=== PATIENT | female | born 1990 | race Caucasian/White ===

== ENCOUNTER 2020-11-02 15:30 | Outpatient (CLI) | payer OTHER | END 2020-11-02 23:59 | disposition home or self-care (01) | LOC: LAB.R 15:30 | PROVIDERS: ATTEND Pediatrics | DX: R43.8 Other disturbances of smell and taste (principal); Z20.822 Contact with and (suspected) exposure to COVID-19 ==

== ENCOUNTER 2020-11-05 17:27 | Outpatient (CLI) | payer OTHER ==
--- OUTSIDE RECORDS SUMMARY | 2020-11-14 00:10 | EXTERNAL MEDICAL SUMMARY RPT | Continuity of Care Document ---
:1990 Demographics Phone Unavailable Preferred Language Unknown Marital Status Unknown Scientology Affiliation Unknown Race Unknown Ethnic Group Unknown Author Organization [place] Address [address] [id number] Phone Care Team Providers Name Role Phone Harpe Unavailable Unavailable Problems date description facility 2014-11-25 20:18 HEAD INJURY, NOS [facility] 2014-11-25 20:18 ACCIDENT IN HOME [facility] 2014-11-25 20:18 FALL ON STAIR/STEP NEC Formerly [facility] 2020-11-02 00:00 ENCOUNTER FOR SCREENING FOR OTHER [facility] VIRAL DISEASES 2020-11-05 17:27 UNSPECIFIED DISTURBANCES OF SMELL [facility] AND TASTE 2020-11-05 17:27 CONTACT W AND EXPOSURE TO OTH [facility] VIRAL COMMUNICABLE DISEASES Allergies date description facility NO KNOWN ALLERGIES [facility] No Known Drug Allergies [facility] Results test status date ordered by attending specimen vamsi e null F 2020-11-02 15:30:00 [email or web address] Daya Valenzuelat 2 16:14:00 facility observation status value reference units lab abnor mal line notes range code [facility] F NEGATIVE unknown [facility] [place] [facility] report - Report scanned to Patient' s EMR. [facility] test status date ordered by attending specimen vamsi e null F 2020-11-05 17:27:00 [email or web address] Daya Taz 2 17:30:00 facility observation status value reference units lab abnor mal line notes range code [facility] F NEGATIVE unknown [facility] [place] [facility] report - Report scanned to Patient' s EMR. [facility] Social History date description facility [id number]
== END 2020-11-05 17:28 | disposition home or self-care (01) ==
LOC: LAB 17:27
PROVIDERS: ATTEND Pediatrics
DX: R43.9 Unspecified disturbances of smell and taste (principal); Z20.822 Contact with and (suspected) exposure to COVID-19

== ENCOUNTER 2025-09-15 15:23 | Inpatient (IN) ==
--- OUTSIDE RECORDS SUMMARY | 2025-09-15 15:29 | EXTERNAL MEDICAL SUMMARY RPT | Continuity of Care Document ---
Author Organization [place] Address [address] [place] [address] Phone Problems date description facility 2025-06-17 00:01 Other malformation of placenta, second trimester [facility] 2025-06-17 00:01 Encounter for superv ision of normal , unspecified, unspecified trimester [facility] 2025-06-19 10:14 Other malformation of placenta, second trimester [facility] 2025-06-20 11:40 Encounter for superv ision of normal , unspecified, unspecified trimester [facility] 2025-06-21 00:04 Encounter for superv ision of normal , unspecified, unspecified trimester [facility] 2025-07-06 15:14 Decreased move ments, third trimester, not applicable or unspecified [facility] 2025-07-26 10:53 Other specified dise ases and conditions complicating [facility] 2025-08-14 09:44 Encounter for screeni ng for Streptococcus B [facility] 2025-08-14 09:45 Encounter for immunization [facility] 2025-08-14 09:45 Encounter for screeni ng for Streptococcus B [facility] 2025-08-14 10:14 Encounter for immunization [facility] 2025-08-14 10:14 Encounter for screeni ng for Streptococcus [facility] 2025-08-15 00:03 Encounter for immunization [facility] 2025-08-15 00:03 Encounter for screeni ng for Streptococcus B [facility] 2025-08-17 07:49 Supervision of elderly multigra nury, third trimester [facility] 2025-08-17 07:49 Encounter for immunization [facility] 2025-08-17 07:49 Encounter for screeni ng for Streptococcus B [facility] 2025-08-17 07:49 36 weeks gestation of [facility] 2025-08-24 09:36 Abnormal glucose complicating p regnancy [facility] 2025-08-30 15:45 Supervision of elderly adalberto arrington, third trimester [facility] 2025-08-30 15:45 38 weeks gestation of [facility] 2025-09-07 14:38 Encounter for superv ision of normal , unspecified, third trimester [facility] 2025-09-14 08:04 Encounter for superv ision of other normal , third trimester [facility] 2025-09-14 08:04 40 weeks gestation of [facility] Results/Labs test date facility value unit notes Result panel 1 WEIGHT 2025-06-20 12:53 [facility] 148 lbs (missing) GLUCOSE,1H PP 50GM DOSE 2025-06-20 12:53 [facility] 151 mg/dl 50g Challenge 1 hr post Glucose < 140 mg/dL Reference: [employer] As of May 2023 testing method has changed, this may include reference ranges. AFP VALUE 2025-06-20 12:53 [facility] 251.4 ng/ml (missing) GEST. AGE ON COLLECTION DATE 2025-06-20 12:53 [facility] 28.3 weeks (missing) MATERNAL AGE AT AYAH 2025-06-20 12:53 [facility] [age] yr (missing) RACE 2025-06-20 12:53 [facility] (missing) (missing) INTERPRETATION 2025-06-20 12:53 [facility] Comment (missing) Interpretation: An interpretation CANNOT be provided for this patient due to one of the following reasons: 1. Gestational age is <15 weeks. Please submit a second sample at the optimum gestational age for screening (16-18 weeks). OR 2. Gestational age is greater than 23 weeks. COMMENTS 2025-06-20 12:53 [facility] Comment (missing) Brenda Clemons, Ph.D., [facility] Director References: Available Upon Request. Multiples Of Median Cutoffs For AFP Elevations Anguiano 2.5 Black 2.8 IDD 2.0 Twins 4.5 Abbreviation Definitions IDD - Insulin Dep Diabetes OSBR - Open Spina Bifida Risk For further inquiries contact [facility] at [phone]. This test was developed and its performance characteristics determined by [employer]. It has not been cleared or approved by the Food and Drug Administration. Performed at: [facility] [id number] [place], [place] [id number] Manager Management: Aury Gordon [facility], Phone: [phone] GESTAT. AGE METHOD 2025-06-20 12:53 [facility] AYAH (missing) 09/10/2025 Recalculations are not recommended when gestational dating by LMP and ultrasound are within 10 days. INSULIN DEP DIABETES 2025-06-20 12:53 [facility] No (missing) (missing) MULTIPLE GESTATION 2025-06-20 12:53 [facility] No (missing) (missing) RPR 2025-06-20 12:53 [facility] Non Reactive (missing) Performed at: [facility] [address] [address], [place], [place] [id number] Manager Management: Kolton Adair MD, Phone: [phone] RESULTS 2025-06-20 12:53 [facility] Report (missing) N [id number] N LMP 19.1 [id number] 1 19 N [id number] 1 N 148 N N N N N AFP MOM 2025-06-20 12:53 [facility] See interpretatio n. (missing) (missing) OPEN SPINA BIFIDA RISK 1 IN 2025-06-20 12:53 [facility] See interpretatio n. (missing) (missing) TEST RESULTS 2025-06-20 12:53 [facility] See interpretatio n. (missing) (missing) Result panel 2 HGB - HEMOGLOBIN 2025-06-20 12:56 [facility] 12.1 g /dl (missing) RED CELL DISTRIBUTION WIDTH 2025-06-20 12:56 [facility] 13.4 % (missing) PLT - PLATELET COUNT 2025-06-20 12:56 [facility] 247 10 3/ul (missing) RED BLOOD COUNT 2025-06-20 12:56 [facility] TORCH.sh 3.73 10 6/ul (missing) MEAN CORPUSCULAR HEMOGLOBIN 2025-06-20 12:56 [facility] 32.4 pg (missing) MEAN CORPUSCULAR HGB CONC 2025-06-20 12:56 [facility] 33 .6 g/dl (missing) HCT - HEMATOCRIT 2025-06-20 12:56 [facility] 36.0 % (missing) WHITE BLOOD COUNT 2025-06-20 12:56 [facility] 8.6 x10 3/ul (missing) MEAN PLATELET VOLUME 2025-06-20 12:56 [facility] 9.1 fl (missing) MEAN CORPUSCULAR VOLUME 2025-06-20 12:56 [facility] 96.5 fl (missing) Result panel 3 GROUP B STREP PCR 2025-08-14 09:44 [facility] NEGATIVE (missing) (missing) Social History date description facility
[2025-09-15] MEDS ORDERED: LABETALOL 20 MG/4 ML SYRINGE IVP PRN ×5 (15:36→23:43)
[2025-09-15] MEDS ORDERED: TERBUTALINE 1 MG/ML VIAL SUBQ PRN (15:36)
[2025-09-15] MEDS ORDERED: ACETAMINOPHEN 500 MG TABLET PO PRN (15:36)
[2025-09-15] MEDS ORDERED: TRANEXAMIC ACID IN NACL 1,000 MG/100 ML BAG IV PRN (15:36)
[2025-09-15] MEDS ORDERED: CARBOPROST TROMETHAMINE 250 MCG/ML VIAL IM PRN (15:36)
[2025-09-15] MEDS ORDERED: OXYTOCIN 10 UNIT/ML VIAL IM PRN (15:36)
[2025-09-15] MEDS ORDERED: OXYTOCIN/SODIUM CHLORIDE 500 ML IV PRN (15:36)
[2025-09-15] MEDS ORDERED: SODIUM CHLORIDE FLUSH 0.9% 10 ML SYRINGE IVP PRN (15:36)
[2025-09-15] MEDS ORDERED: hydrALAZINE INJ 20 MG/ML VIAL IVP PRN ×3 (15:36→23:43)
[2025-09-15] MEDS ORDERED: METHYLERGONOVINE 0.2 MG/ML VIAL IM PRN (15:36)
[2025-09-15] MEDS ORDERED: fentaNYL 100 MCG/2 ML VIAL IVP PRN (15:36)
[2025-09-15] MEDS ORDERED: SODIUM CHLORIDE FLUSH 0.9% 10 ML SYRINGE IVP SCH (16:00)
--- NOTE | 2025-09-15 16:04 | HISTORY & PHYSICAL EXAMINATION ---
Admit History Smoking Status: Never smoker Other Maternal History Other Maternal History: HPI: This 35 yo @ 40+5 weeks by LMP and confirmed by 12 week ultrasound presents to L&D following clinic visit where she was found to be 5/70/-2 and membranes swept. Experiencing decreased movement both today and yesterday. Reviewed that the recommendation for postdates , with decreased movement and especially advanced cervical dilation, is induction of labor. When reviewing her goals of induction she is opting to progress in whatever way can safely get her to delivery of her healthy baby girl in the shortest timeline is her preferred method. Open to AROM and oxytocin. Desires epidural for pain management. Reviewed that risks of labor include but are not limited to section, prolonged labor, vacuum extraction, episotomy, hemorrhage, and additional risks exist re: prolonged second stage related to extraction. Reviewed back up OBGYN is available for consultations, emergency interventions and transfer of care if indicted. She has been a patient of [facility] care for the duration of her which has remained uncomplicated. ROS: No Headache, visual changes or right upper quadrant abdominal pain. Denies significant N/V. Denies urinary urgency or dysuria. All other symptoms reviewed and were negative except per HPI. In the event of an emergency, accepts the administration of blood products. Recent BP: 112/70 Labs: H&H 12.1/ 36.0, PLT 247 Last u/s EFW: 53% @ 28 weeks Total maternal weight gain: + 34# In the event of an emergency, ACCEPTS the administration of blood products OB hx: uncomplicated G1: 2011; M; G2: 2013; M; Medical Hx: Depression; ADHD Surgical Hx: Toe surgery Social Hx: Monogamous with male partner. Stopped drinking alcohol due to . Denies current use of tobacco, marijuana or other recreational drugs. Reports that she is safe in current relationship. Family Hx: Denies family history of congenital anomalies, Cystic Fibrosis or chromosomal abnormalities. Diabetes - aunt; Alcoholism - father; Colon cancer - MGF Allergies:NKDA Medications: PNV LMP:12/04/24 AYAH by LMP: 09/10/2025 U/S: @ 12.5wks c/w LMP dating (AYAH by U/S 09/09/2025) Final AYAH: 09/10/2025 Pre- weight: 135 BMI: 24.7 Blood type: O+ Antibody screen: Negative CBC: PLT 253 HCT 38.6HGB 13.3 Rubella: Immune VZV: Immune HBsAg: Negative HepC: NR RPR/AB-EIA: NR HIV: NR Flu: 08/14/2025 COVID: Declines PAP: unsure GC/CT: negative HSV: denies in self and partner Genetic Testing:MaterniT - Neg; AFP- not done FAS: Placenta: anterior w/o previa Cord:3VC SONY:WNL EFW: 550.5g, 33.8%ile 50gm GCT: 151 3 hr GTT: profiled TDAP: 08/14/2025 Breast Pump: given 2nd antibody screen: 3rd trimester 12.1/ 36.6/ 247 3rd trimester RPR NR RSV 08/14/2025 GBS: 08/14/2025 Negative Delivery plan: Epidural, accepts active management of the third stage, intends to breastfeed contraception Physical exam: Normocephalic, atraumatic No increased work of breathing Abdomen gravid, soft, nontender. EFW 3700 FHR baseline 140, minimal to moderate variability, + accelerations, no decelerations Genaro irregularily, soft uterine resting tone. SVE 5/70/-2, intact, vertex, membranes intact prior to AROM Bilateral LE's trace edema Mood is good. Assessment: 35 yo @ 40+5 weeks gestation by 12+5 wk U/S postdates decreased movement but reactive tracing advanced cervical dilation FHR 140, primarily category I. GBS NEG Plan: Admit to [facility] for induction of labor AROM, clear fluid @ 1644 Pitocin for induction of labor. Continuous monitoring Jacuzzi PRN. Nitrous oxide PRN. Epidural PRN Maternal Request. Anticipate . HPI Current : Vital Signs Temperature 36.9 C 09/15/25 15:40 Pulse Rate 83 09/15/25 15:40 Respiratory Rate 14 09/15/25 15:40 Blood Pressure 112/70 09/15/25 15:40 Meds/Allgy Home Medications Ambulatory Orders Medication Instructions Recorded Confirmed vits no.126-ferrous fum tab PO 02/01/2509/15 28 mg iron-folic acid 800 mcg tablet (Classic ) blood sugar diagnostic (True #100 ea 06/25/25 09/15/25 Metrix Glucose Test Strip) blood-glucose meter (True Metrix #1 ea 06/25/25 Air Glucose Meter) lancets 30 gauge (Ultra Thin #100 ea 06/25/25 09/15/25 Lancets) Allergies Allergies Allergy/AdvReac Type Severity Reaction Status Date / Time No Known Drug Allergies Allergy Verified 09/15/25 16:35 PFSH Active Problems All Active Problems (Updated 09/15/25 @ 15:38 by WALKER Hong) Decreased movement (Acute) Post-term , 40-42 weeks of gestation (Acute) Elevated glucose tolerance test (Acute) Marginal insertion of umbilical cord affecting management of mother in second trimester (Acute) Supervision of normal (Acute) ADHD (Acute) Medical History Medical History (Updated 09/15/25 @ 15:38 by WALKER Hong) Depression Surgical History Surgical History (Updated 02/01/25 @ 13:49 by Mady Akers RN) H/O toe surgery Family History Family History (Updated 02/01/25 @ 14:20 by Mady Akers RN) Father Alcoholism Maternal grandfather Colon cancer Aunt Diabetes Uncle Mental disorder Social History Social History (Updated 07/18/25 @ 13:12 by Mirna May MA) Smoking Status: Never smoker Do you vape?: No ETOH Use: None Frequency: Occasional Substance Use: denies use POLST Patient has POLST: No Physical Abdominal Exam Vital Signs: Temp Pulse Resp BP 36.9 C 83 14 112/70 09/15/25 15:40 09/15/25 15:40 09/15/25 15:40 09/15/25 15:40 Plan for Labor Plan For Labor I expect patient to be DC'd or transferred within 96 hours.: Yes
[2025-09-15 17:12] LABS: HCT - HEMATOCRIT 39.9 % (37.0-47.0); HGB - HEMOGLOBIN 14.0 g/dL (12.0-16.0); MEAN PLATELET VOLUME 9.5 fL (7.9-10.8); NRBC ABSOLUTE COUNT (AUTO) 0.00 x10^3/uL; NUCLEATED RED BLOOD CELLS AUTO 0.0 /100WBC; PLT - PLATELET COUNT 281 10^3/uL (130-450); RED CELL DISTRIBUTION WIDTH 13.8 % (12.0-15.0)
[2025-09-15] MEDS: LACTATED RINGERS 1,000 ML IV PRN (17:14)
[2025-09-15] MEDS ORDERED: LIDOCAINE 2%-EPI 1:100000 20 ML MDV ONE (19:16)
[2025-09-15] MEDS ORDERED: ROPIVACAINE 0.2% 200 MG/100 ML BAG EP ONE (19:17)
[2025-09-15] MEDS ORDERED: ROPIVACAINE 0.2% 200 MG/100 ML BAG EP PRN (20:10)
[2025-09-15] MEDS ORDERED: ONDANSETRON 4 MG/2 ML VIAL IVP PRN (20:10)
[2025-09-15] MEDS ORDERED: ePHEDrine 50 MG/ML VIAL IVP PRN (20:10)
[2025-09-15] MEDS ORDERED: NALOXONE 0.4 MG/ML VIAL IVP PRN ×2 (20:10→23:43)
--- NOTE | 2025-09-15 20:12 | ANESTHESIA PROCEDURE NOTE ---
Pre-Anesthesia VS, & Labs Diagnosis Surgical Diagnosis:: Active labor Procedure Procedure: vaginal delivery Vitals Vital Signs: Temp Pulse Resp BP Pulse Ox 36.9 C 73 14 113/74 98 09/15/25 16:49 09/15/25 16:49 09/15/25 16:49 09/15/25 16:49 09/15/25 16:49 NPO NPO: Other (clear liquids ok) Is Patient ?: Yes Lab Results Current Lab Results: Laboratory Tests 09/15/25 16:00: WBC 9.8, RBC 4.18 L, Hgb 14.0, Hct 39.9, MCV 95.5, MCH 33.5 H, MCHC 35.1, RDW 13.8, Plt Count 281, MPV 9.5, Neut # (Auto) 7.6 H, Lymph # (Auto) 1.3 L, [place] # (Auto) 0.5, Eos # (Auto) 0.3, Baso # (Auto) 0.0, Absolute Nucleated RBC 0.00, Nucleated RBC % 0.0, Blood Type O POSITIVE, Antibody Screen NEGATIVE Lab results reviewed: Yes 09/15/25 16:00 Meds/Allgy Home Medications Ambulatory Orders Medication Instructions Recorded Confirmed vits no.126-ferrous fum tab PO 02/01/2509/15 28 mg iron-folic acid 800 mcg tablet (Classic ) blood sugar diagnostic (True #100 ea 06/25/25 09/15/25 Metrix Glucose Test Strip) blood-glucose meter (True Metrix #1 ea 06/25/25 Air Glucose Meter) lancets 30 gauge (Ultra Thin #100 ea 06/25/25 09/15/25 Lancets) Allergies Allergies Allergy/AdvReac Type Severity Reaction Status Date / Time No Known Drug Allergies Allergy Verified 09/15/25 16:35 PFSH Active Problems All Active Problems Decreased movement (Acute) Post-term , 40-42 weeks of gestation (Acute) Elevated glucose tolerance test (Acute) Marginal insertion of umbilical cord affecting management of mother in second trimester (Acute) Supervision of normal (Acute) ADHD (Acute) Medical History Medical History Depression Surgical History Surgical History H/O toe surgery Family History Family History (Updated 02/01/25 @ 14:20 by Mady Akers RN) Father Alcoholism Maternal grandfather Colon cancer Aunt Diabetes Uncle Mental disorder Social History Social History (Updated 07/18/25 @ 13:12 by Mirna May MA) Smoking Status: Never smoker Do you vape?: No ETOH Use: None Frequency: Occasional Substance Use: denies use POLST Patient has POLST: No POLST CPR Status: Attempt Resuscitation (CPR) Level of Medical Intervention: Full Treatment Anesthesia Exam (Expanded) Exam General: Alert, Oriented x3 and Cooperative Dental: WNL Mouth Openin Fingerbreadth Neck Mobility: Normal Mallampati classification: II Thyromental Distance: 4-6 cm Exam Exam Vital Signs: Vital Signs x48h Temp Pulse Pulse Resp BP BP Pulse Ox 09/15/25 16:49 36.9 C 73 14 113/74 98 09/15/25 15:40 36.9 C 83 14 112/70 Plan Plan Anesthesia Type: Epidural Consent for Procedure(s) Verified and Reviewed: Yes Code Status: Attempt Resuscitation ASA Classification ASA classification: 2-Mild systemic disease Is this case an emergency?: No
[2025-09-15] MEDS: OXYTOCIN/SODIUM CHLORIDE 500 ML IV SCH (20:25)
--- NOTE | 2025-09-15 22:37 | PROVIDER PROGRESS NOTE ---
Labor Progress Note Labor Progress Note Labor Progress Note/Additional Text: Patient had some relief with epidural but increased discomfort with progression. Episode of several prolonged decelerations. Cervix anterior lip. Patient feeling pressure. Began pushing and cervix reduced with trial pushes. Pushed [id number]. Patient no longer feeling intense pressure with contractions and baby tolerating contractions without decelerations. Discussed continued pushing vs allowing for passive decent. Patient nauseated as well. Open to passive desent for up to 1 hour before repeat cervical exam. Discussed that baby may give us signs that she is ready to begin pushing before that time as well. To high thrones position for passive descent.
[2025-09-15] MEDS: OXYTOCIN/SODIUM CHLORIDE 500 ML IV PRN (23:17)
[2025-09-15] MEDS ORDERED: LABETALOL 5 MG/1 ML 20 ML MDV IVP PRN (23:43)
[2025-09-15] MEDS ORDERED: SIMETHICONE CHEW 80 MG TABLET PO PRN (23:43)
--- NOTE | 2025-09-15 23:43 | DELIVERY NOTE ---
Delivery Note Delivery Comments (Free Text/Narrative) Delivery Comments (Free Text/Narrative): This 35 -year-old, @ 40+5 weeks gestation by 12 week ultrasound presented for induction of labor following a clinic encounter today where she was found to be 5cm and reported decreased movement. Hooks score 9. GBS negative. AROM @ 16:44 clear fluid, oxytocin maximum infusion 2mu/min. FHR pattern demonstrated 140-150 baseline in a category I-II prior to second stage. Epidural placed upon maternal request. She then progressed to complete/complete @ 21:47 after a few trial pushes and second stage began. She pushed for about 30 minutes with minimal progression and a decreased urge to push. Baby was tolerating things well so we took about a 40 minute break for passive descent then active pushing resumed. : Normal spontaneous vaginal delivery of a viable female on 09/15/2025 @ 2309 ROT. No nuchal cord. No compound delivery. The was placed on maternal abdomen, stimulated, dried and placed skin to skin. Apgars 9 & 9 @ 1 & 5 minutes. The umbilical cord was allowed to stop pulsating at which time it was doubly clamped by delivering provider and cut by primary RN. 3VC. Cord blood was obtained. Fundal massage and gently cord traction applied for active management of the third stage, placenta delivered spontaneously and intact and appeared normal within about 15 minutes of . EBL 150. Placenta was not sent to pathology. Pitocin administered via IV for hemostasis and allowed to run freely. Uterine massage was performed until uterus was deemed firm. weight 3339g Inspection of the perineum noted a superficial perineal abrasion that was repaired under epidural anesthesia with running 3-0 vicryl rapide, repaired in standards fashion under sterile conditions. Upon re-inspection the patient was hemostatic. Uterus again massaged and found to be firm. Needle and sponge counts were correct. Uterine fundus firm and there is no excessive bleeding. Tissues well approximated. Skin to skin initiated. Family bonding well. Both mother and baby are in stable condition.
[2025-09-16] MEDS: IBUPROFEN 600 MG TABLET PO PRN (00:02)
[2025-09-16] MEDS: ACETAMINOPHEN 500 MG TABLET PO PRN (00:02)
[2025-09-16] MEDS: DOCUSATE SODIUM 100 MG CAPSULE PO SCH (08:02)
--- NOTE | 2025-09-16 10:02 | PROVIDER PROGRESS NOTE ---
Subjective Subjective Subjective: S: Bonding well with baby. without difficulty. Bleeding decreased and is light. Pain is well controlled with oral medications. She is urinating without difficulty. Has not yet had BM. is supportive at the bedside. O: Heart RRR w/o M/G/R, lungs CTAB, abdomen soft and nontender with fundus firm at U, perineum intact, light lochia rubra, bilateral LE's trace edema A: 35yo -->P3 PPD#1 s/p TSVD viable female infant Normal recovery P: Continue routine care and medications. Evaluate for discharge home tomorrow Current Medications Current Medications Current Medications: Current Medications Generic Name Dose Route Start Last Admin Trade Name Freq PRN Reason Stop Dose Admin Acetaminophen 1,000 mg 09/15/25 23:43 09/16/25 08:02 Acetaminophen 500 Mg Tablet PO 1,000 mg Q8HR PRN Administration Mild Pain or Fever>38C(100.4F) Docusate Sodium 100 mg 09/16/25 09:00 09/16/25 08:02 Docusate Sodium 100 Mg Capsule PO 100 mg BID ZORAIDA Administration Ephedrine Sulfate 5 mg 09/15/25 20:10 Ephedrine 50 Mg/Ml Vial IVP Q5M PRN For SBP<100;give until SBP>100 Hydralazine HCl 10 mg 09/15/25 23:43 Hydralazine Inj 20 Mg/Ml Vial IVP .ONCE PRN SBP> or= 160 OR DBP> or= 110 Protocol Hydralazine HCl 5 - 10 mg 09/15/25 23:43 Hydralazine Inj 20 Mg/Ml Vial IVP Q20M PRN SBP >=160 and/or DBP >=110 Protocol Oxytocin/Sodium Chloride 500 mls @ 2 mls/hr 09/15/25 17:00 09/15/25 21:32 Pitocin/Sodium Chloride IV Infused TITR ZORAIDA Titration Protocol 2 MILLIUNIT/MIN Ropivacaine 200 mg in 100 mls @ 0 mls/hr 09/15/25 20:10 Naropin 0.2% EP PRN PRN PAIN Protocol Per Protocol Oxytocin/Sodium Chloride 500 mls @ 999 mls/hr 09/15/25 23:43 09/16/25 00:18 Pitocin/Sodium Chloride IV Infused PRN PRN Titration POST- HEMORR PREVENTION Protocol 999 MILLIUNIT/MIN Ibuprofen 600 mg 09/15/25 23:43 09/16/25 06:01 Ibuprofen 600 Mg Tablet PO 600 mg Q6HR PRN Administration Moderate Pain (Level 4-6) Labetalol HCl 20 - 80 mg 09/15/25 23:43 Labetalol 5 Mg/1 Ml 20 Ml Mdv IVP Q10M PRN SBP> or= 160 OR DBP> or= 110 Protocol Labetalol HCl 20 - 40 mg 09/15/25 23:43 Labetalol 20 Mg/4 Ml Syringe IVP Q10M PRN SBP> or= 160 OR DBP> or= 110 Protocol Labetalol HCl 20 mg 09/15/25 23:43 Labetalol 20 Mg/4 Ml Syringe IVP .ONCE PRN SBP >=160 and/or DBP >=110 Protocol Naloxone HCl 0.1 mg 09/15/25 20:10 Naloxone 0.4 Mg/Ml Vial IVP Q2M PRN RR<8 Naloxone HCl 0.4 mg 09/15/25 23:43 Naloxone 0.4 Mg/Ml Vial IVP .ONCE PRN Opioid Overdose Nifedipine 10 - 20 mg 09/15/25 23:43 Nifedipine 10 Mg Capsule PO Q20M PRN SBP >=160 and/or DBP >=110 Protocol Ondansetron HCl 4 mg 09/15/25 20:10 Ondansetron 4 Mg/2 Ml Vial IVP Q6HR PRN Nausea / Vomiting Simethicone 80 mg 09/15/25 23:43 Simethicone Chew 80 Mg Tablet PO TID PRN Gas Objective Vital Signs/Intake & Output Vital Signs: Vital Signs x48h Temp Pulse Resp BP Pulse Ox 09/16/25 07:49 97.9 F 70 14 100/58 L 97 09/16/25 05:45 97.7 F 62 15 99/54 L 09/16/25 04:00 85 16 104/62 09/16/25 03:30 98.4 F 85 16 104/62 09/16/25 02:30 98.6 F 77 16 110/57 L Intake & Output: Intake & Output 09/13/25 09/14/25 09/15/25 09/16/25 23:59 23:59 23:59 23:59 Intake Total 502 / 502 500 / 500 Output Total 275 / 275 480 / 480 Balance 227 / 227 Weight (kg) 168 lb Lab Results 09/15/25 16:00 Other Labs: Lab Results x24hrs 09/15/25 Range/Units 16:00 WBC 9.8 (4.8-10.8) x10^3/uL RBC 4.18 L (4.20-5.40) 10^6/uL Hgb 14.0 (12.0-16.0) g/dL Hct 39.9 (37.0-47.0) % MCV 95.5 (81.0-99.0) fL MCH 33.5 H (27.0-31.0) pg MCHC 35.1 (32.0-36.0) g/dL RDW 13.8 (12.0-15.0) % Plt Count 281 (130-450) 10^3/uL MPV 9.5 (7.9-10.8) fL Neut # (Auto) 7.6 H (1.5-6.6) 10^3/uL Lymph # (Auto) 1.3 L (1.5-3.5) 10^3/uL Gray # (Auto) 0.5 (0.0-1.0) 10^3/uL Eos # (Auto) 0.3 (0.0-0.7) 10^3/uL Baso # (Auto) 0.0 (0.0-0.1) 10^3/uL Absolute Nucleated RBC 0.00 x10^3/uL Nucleated RBC % 0.0 /100WBC Blood Type O POSITIVE Antibody Screen NEGATIVE
--- NOTE | 2025-09-17 09:56 | Discharge Summary ---
Discharge Summary HOSPITAL COURSE Hospital Course: Date of Admission: 09/15/2025 Date of Delivery: 09/15/2025 Diagnosis on Admission: 1. 35 yo @ 40+5 weeks gestation by 12+5 wk U/S 2. postdates 3. decreased movement but reactive tracing 4. advanced cervical dilation 5. FHR 140, primarily category I. 6. GBS NEG Diagnosis on Discharge: 1. 35yo PPD#2 s/p TSVD viable female infant 2. 3. Normal recovery Brief History: She is a patient of [facility] who presented on 09/15/2025 in active labor. Cervix was 5/70/-2 and vertex with intact membranes. AROM occurred 1644 and was noted to be a moderate amount of clear fluid. Epidural was placed per maternal request. She spontaneously progressed to deliver a viable female on 09/15/2025 @ 2147. Perineum was noted to have a superficial perineal abrasion which was repaired using a 3-[address]-1 needle in standard fashion and under sterile conditions. Apgars were 9/9 at 1 and 5 minutes respectively. EBL 150 mL. She has been doing well in her course. She is ambulating and tolerating a regular diet. She is urinating without difficulty and her lochia is normal. Her pain is well controlled with oral medications. She will be discharged home today on day #2 with instructions to continue taking her vitamin while and to continue taking Ibuprofen and Tylenol over the counter as needed for pain management. She intends to follow up with myself at [facility] in 1 week for routine visit or sooner if needed. She has been given precautions to call if she has any worsening fevers, chills, abdominal pain, increased vaginal bleeding or foul smelling vaginal lochia. Physical Exam: Normocephalic, atraumatic. Heart RRR w/o M/G/R, lungs CTAB, abdomen soft and nontender with fundus firm at U-1, perineum intact, light lochia rubra, bilateral LE's no edema. Mood is good. ALLERGIES Allergies Allergy/AdvReac Type Severity Reaction Status Date / Time No Known Drug Allergies Allergy Verified 09/15/25 16:35 MEDICATIONS Ambulatory Orders Medication Instructions Recorded Confirmed vits no.126-ferrous fum tab PO 02/01/2509/15 28 mg iron-folic acid 800 mcg tablet (Classic ) PHYSICAL EXAM AT DISCHARGE Vital Signs: Vital Signs x48h Temp Pulse Resp BP Pulse Ox 09/17/25 04:00 97.7 F 69 17 108/68 96 LABS 09/15/25 16:00 Discharge Plan Discharge Patient Disposition: Home, Self Care Prescriptions: Continued Classic 28 mg iron- 800 mcg tablet PO Discontinued (DME) blood-glucose meter [True Metrix Air Glucose Meter] Misc See Rx Instructions .ROUTE .MEDSUPPLY Qty: 1 0RF Rx Instructions: As directed to check blood glucose 4x/day (DME) True Metrix Glucose Test Strip Strip See Rx Instructions .ROUTE .MEDSUPPLY Qty: 100 3RF Rx Instructions: As directed 4x daily to check blood glucose (DME) lancets [Ultra Thin Lancets] 30 gauge misc See Rx Instructions .ROUTE .MEDSUPPLY Qty: 100 4RF Rx Instructions: As directed to check blood glucose 4x/day Print Language: Lithuanian Patient Instructions: After a Vaginal , : Caring for Yourself
[2025-09-17 14:38] VITALS: BP 108/67; TEMP 98.8; O2SAT 95
--- NOTE | 2025-09-17 14:42 | Labor Flowsheet ---
Labor Flowsheet Datetime Report Generated by CPN: 09/17/2025 14:42 Datetime: 09/17/2025 13:02 VITAL SIGNS NBP Sys/Meaghan/Mean (mmHg): 108 : 67 : 76 Pulse: 83 LaborFlag: Labor Datetime: 09/16/2025 01:49 SpO2 (%): 96 Datetime: 09/15/2025 23:17 Membranes Ruptured Date/Time: 09/15/2025 16:44 Amniotic Fluid Odor: None Datetime: 09/15/2025 23:09 ASSESSMENT A Monitor Mode: Telemetry Decelerations: Late; Variable Category: Category II Comments: indtermnent Datetime: 09/15/2025 23:01 UTERINE ACTIVITY Monitor Mode: External Frequency (min): 1-4 Quality: Strong Duration (sec): 60-120 Pattern: Normal: <= 5 Contractions in 10 Minutes Resting Tone (Palpate): Relaxed Pitocin Checklist: No More than 5 Uterine Contractions in 10 Minutes for any 20 Minute Interval; Uterus Palpates Soft between Contractions FHR Baseline Rate : 135 Variability: Moderate 6-25 bpm Accelerations: None Datetime: 09/15/2025 22:53 STAGE 2 Pushing: Coached on Pushing Pushing Position: Pushing with Contractions; Pushing Lithotomy Pushing Progress: Descent with Pushing; Perineal Bulging Datetime: 09/15/2025 22:45 COMMUNICATION Communication: Provider at Bedside Datetime: 09/15/2025 22:16 Temperature (C): 36.9 Datetime: 09/15/2025 22:00 Stage 2 Comments: CNM _ RNs remain cont at bedside while pt pushing with ctxs Datetime: 09/15/2025 21:47 VAGINAL EXAM Dilatation (cm): 10.0 Effacement (%): 100 Station: 1 Exam by: CNRick Espinal, K Vaginal Exam Comments: cervix reduced with trial pushes Datetime: 09/15/2025 21:39 Actions for Decelerations: Provider Notified Patient Care Comments: pt assisted to L lateral for SVE Datetime: 09/15/2025 21:33 PATIENT CARE IV/Blood Work: IV Bolus Started Datetime: 09/15/2025 21:32 MEDICATIONS Pitocin (milliunits): Discontinued Datetime: 09/15/2025 21:03 PAIN Pain Scale: 7 Pain Presence: Intermittent Pain Type: Sharp; Contraction Pain Location: Right Hip Pain Relief Measures: 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 edu. on postion change, but unable due to FHR. 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 Will have CNRA assess when she is avaiable. The plan for now is to use AUT[employer]ACH[employer] SUPERVISOR dose to see if it can relive pain Datetime: 09/15/2025 20:30 Patient Position/Activity: Right Lateral Datetime: 09/15/2025 20:12 Vaginal Bleeding: Normal Show I/O Interventions: Renee Cath Inserted Datetime: 09/15/2025 19:46 Anesthesia Level Check: T11 Datetime: 09/15/2025 19:36 Epidural Procedure Other: Pump Started Datetime: 09/15/2025 19:27 Epidural Procedure: Test Dose Anesthesia Comments: HR- 81 Datetime: 09/15/2025 19:24 Medication Comments: lido @192 Datetime: 09/15/2025 19:21 PROCEDURE TIME OUT Procedure Type: 1923 Procedure Verify: Correct Patient Identity; Correct Side and Site are Marked; Agreement on Procedure to be Done; Correct Patient Position ANESTHESIA Anesthesia Plans: Epidural Epidural Positioning: Sitting Datetime: 09/15/2025 19:10 Pain Goal: 0 Membrane Status: Ruptured MATERNAL ASSESSMENT Level of Consciousness: Alert DTR's/Clonus: No Clonus Headache: Denies Breath Sounds, Left: Clear and Equal Breath Sounds, Right: Clear and Equal Nausea/Vomiting: Denies RUQ Epigastric Pain: Denies Comfort Measures: Breathing/Relaxation TEACHING Instructional Method: Verbal Plan of Care: Plan of Care Discussed; Labor Unit Routine: [place] to Room; Call Osman; Bed; IV Pumps; Safety/Fall Risk Prevention Labor/Induction: Labor Stages; Interventions; Activity Datetime: 09/15/2025 18:50 Stage of : Labor Respirations: 15 Temperature Route: Oral Datetime: 09/15/2025 18:31 Communication Comments: ANTONI Lara updated on FHT. CNM at bedside to discuss POC with pt. Pitocin held at this time d/t FHT. Datetime: 09/15/2025 17:34 Contraction Comments: pt states she is feeling cxtns in her back. RN suggests pt ambulate in room, use birhting ball Datetime: 09/15/2025 16:44 Membranes Rupture Method: Artificial Amniotic Fluid Color: Clear Amniotic Fluid Amount: Small Datetime: 09/15/2025 16:30 Monitor Interventions for FHR: Ultrasound Adjusted
== END 2025-09-17 13:30 | disposition home or self-care (01) | DRG 807 ==
LOC: FBP 15:23
PROVIDERS: ADMIT Nurse Practitioner; ATTEND Nurse Practitioner